=== PATIENT | female | born 1975 | race Caucasian/White ===

== ENCOUNTER → 2016-12-10 | Outpatient (CLI) | payer BC | END | disposition home or self-care (01) | LOC: C.PAPS 11:47 | PROVIDERS: ATTEND Obstetrics & Gynecology | DX: Z01.419 Encounter for gynecological examination (general) (routine) without abnormal findings (principal) ==

== ENCOUNTER 2017-08-24 06:01 | Emergency (ER) | payer BC ==
[~2017-08-24] VITALS: Ht 160 cm; Wt 69.2 kg
[2017-08-24 06:12] VITALS: TEMP 36.6; Ht 160 cm; Wt 69.2 kg
[2017-08-24] MEDS ORDERED: KETOROLAC TROMETHAMINE 30 MG/ML VIAL IV STA (06:56)
--- NOTE | 2017-08-24 07:00 | EMERGENCY ROOM VISIT NOTE ---
History Report prepared by Gloria: Jarett Chávez Under the Supervision of: Dr. Dejuan Stewart M.D. First contact with patient: 06:48 Chief Complaint: HEADACHE Stated Complaint: HEADACHE History of Present Illness The patient is a 42 year old female who presents to the Emergency Room with complaints of intermittent headaches beginning a few months ago. The patient states that she went to see a nurse practitioner at [facility] yesterday for her headaches. She notes that she was told that her blood pressure was high and to go to the emergency room if she developed any bad headaches. She reports that she woke up today with a bad headache, prompting her visit to the emergency department. The patient states that she has never had high blood pressure. She notes that she gets headaches that feel like "sinus headaches" several times a week. She reports that her headaches are located on the surface of the back and both sides of her head. The patient states that she typically feels better after taking Advil, but took Tylenol today with mild relief of her symptoms. She notes that she does not know what triggers her headaches. She denies any CP , current SOB, numbness, weakness, difficulty speaking, current vision changes, fever, chills, abdominal pain, and chance of . Although she does not complain of any current SOB or vision changes, she reports that she recently has been feeling SOB more easily than she used to and has had to squint in order to see clearly. She also complains of mild neck soreness. The patient states that she has recently stopped taking her control. She notes that she had a sinus infection a few months ago, and that she has a family history of diabetes on her father's side. She rates her pain as a 7/10. Source of History: patient Onset: a few months ago Position: head Symptom Intensity: 7/10 Quality: other ("sinus headache") Timing: intermittent Modifying Factors (Relieving): other (Advil) Associated Symptoms: No fevers, No chills, No chest pain, No SOB, No abdominal pain Note: She also complains of a high blood pressure. She also denies any numbness, weakness, difficulty speaking, and current vision changes. Review of Systems See HPI for pertinent positives & negatives. A total of 10 systems reviewed and were otherwise negative. Past Medical & Surgical Medical Problems: (1) No chronic diseases present Old medical records were reviewed. Nurse's notes were reviewed and I agree with. Family History FHx: diabetes mellitus FATHER Social History Smoking Status: Never Smoker Marital Status: Housing Status: lives with family Occupation Status: employed Current/Historical Medications No Active Prescriptions or Reported Meds Allergies Coded Allergies: No Known Allergies (Unverified , 08/24/17) Physical Exam Vital Signs Date Time Temp Pulse Resp B/P (MAP) Pulse Ox O2 Delivery O2 Flow Rate FiO2 08/24/17 08:49 69 20 160/102 95 Room Air 08/24/17 07:36 64 14 162/112 100 Room Air 08/24/17 06:12 36.6 74 18 173/133 95 Room Air Physical Exam General: Non-ill appearing 42 year old female, in no acute distress. HEENT: Normal cephalic atraumatic. Pupils are equal round and reactive to light. Extraocular movements are intact. Oropharynx is pink with moist mucous membranes. No swelling of the mouth lips or tongue. Neck: Supple with a midline trachea. No meningeal signs or stiffness, no JVD or bruits. No Stridor. Chest: Clear to auscultation bilaterally. No wheezes or rhonchi. No increased work of breathing. Heart: regular rate and rhythm. Abdomen: Soft nontender, nondistended without rebound guarding or rigidity. Extremities: No cyanosis clubbing or edema. No calf tenderness or assymetry Spine/Back. Non tender to palpation. No CVA tenderness Skin: Good turgor without rashes. Neurologic exam: Cranial nerves two through 12 are intact. Motor and sensation are intact and symmetrical throughout. Finger to nose intact, no tremor. Medical Decision & Procedures ER Provider Diagnostic Interpretation: Radiology results as stated below per my review and radiologist interpretation: CHEST ONE VIEW PORTABLE FINDINGS: The lungs are clear. Cardiac silhouette is normal in size. No pleural effusions. No pneumothorax. IMPRESSION: No acute process. Electronically signed by: Jovani Arreola M.D. 08/24/2017 7:[address] NONCONTRAST Findings: The paranasal sinuses and mastoid air cells are clear. The calvarium and skull base are intact. The ventricles and sulci are within normal limits. There is no mass, hematoma, midline shift, or acute infarct. Impression: No acute intracranial abnormality. Electronically signed by: Jovani Arreola M.D. 08/24/2017 8:20 AM Laboratory Results 08/24/17 07:15 Red Blood Count 4.91, Mean Corpuscular Volume 90.2, Mean Corpuscular Hemoglobin 31.2, Mean Corpuscular Hemoglobin Concent 34.5, Mean Platelet Volume 9.6, Neutrophils (%) (Auto) 58.1, Lymphocytes (%) (Auto) 32.8, Monocytes (%) (Auto) 7.0, Eosinophils (%) (Auto) 1.4, Basophils (%) (Auto) 0.5, Neutrophils # (Auto) 3.74, Lymphocytes # (Auto) 2.11, Monocytes # (Auto) 0.45, Eosinophils # (Auto) 0.09, Basophils # (Auto) 0.03 08/24/17 07:15 Test 08/24/17 07:15 08/24/17 07:18 White Blood Count 6.43 K/uL (4.8-10.8) Red Blood Count 4.91 M/uL (4.2-5.4) Hemoglobin 15.3 g/dL (12.0-16.0) Hematocrit 44.3 % (37-47) Mean Corpuscular Volume 90.2 fL (80-100) Mean Corpuscular Hemoglobin 31.2 pg (25-34) Mean Corpuscular Hemoglobin Concent 34.5 g/dl (32-36) Platelet Count 274 K/uL (130-400) Mean Platelet Volume 9.6 fL (7.4-10.4) Neutrophils (%) (Auto) 58.1 % Lymphocytes (%) (Auto) 32.8 % Monocytes (%) (Auto) 7.0 % Eosinophils (%) (Auto) 1.4 % Basophils (%) (Auto) 0.5 % Neutrophils # (Auto) 3.74 K/uL (1.4-6.5) Lymphocytes # (Auto) 2.11 K/uL (1.2-3.4) Monocytes # (Auto) 0.45 K/uL (0.11-0.59) Eosinophils # (Auto) 0.09 K/uL (0-0.5) Basophils # (Auto) 0.03 K/uL (0-0.2) RDW Standard Deviation 45.3 fL (36.4-46.3) RDW Coefficient of Variation 13.7 % (11.5-14.5) Immature Granulocyte % (Auto) 0.2 % Immature Granulocyte # (Auto) 0.01 K/uL (0.00-0.02) Anion Gap 8.0 mmol/L (3-11) Est Creatinine Clear Calc Drug Dose 83.1 ml/min Estimated GFR () 100.8 Estimated GFR (Non- 86.9 BUN/Creatinine Ratio 13.4 (10-20) Calcium Level 8.9 mg/dl (8.5-10.1) Total Bilirubin 0.4 mg/dl (0.2-1) Direct Bilirubin 0.1 mg/dl (0-0.2) Aspartate Amino Transf (AST/SGOT) 16 U/L (15-37) Alanine Aminotransferase (ALT/SGPT) 21 U/L (12-78) Alkaline Phosphatase 64 U/L (45-117) Total Protein 7.8 gm/dl (6.4-8.2) Albumin 3.7 gm/dl (3.4-5.0) Lipase 193 U/L (73-393) Thyroid Stimulating Hormone (TSH) 1.810 uIu/ml (0.300-4.500) Human Chorionic Gonadotropin, Qual NEG (NEG) Bedside Troponin I < 0.030 ng/ml (0-0.045) Laboratory studies as stated above per my review. Medications Administered Medications (Trade) Dose Ordered Sig/Nichelle Route Start Time Stop Time Status Last Admin Dose Admin Ketorolac Tromethamine (Toradol Inj) 30 mg NOW STAT IV 08/24/17 06:56 08/24/17 06:59 DC 08/24/17 07:34 30 MG ECG Indication: other (hypertension) Rate (beats per minute): 67 Rhythm: normal sinus Findings: no acute ischemic change, no ectopy Comparison ECG Date: no prior available ED Course 0655: Past medical records reviewed. The patient was evaluated in room B10, and a complete history and physical examination were performed. 0656: Toradol Inj 30mg IV 0745: I reevaluated and updated the patient. Upon reevaluation, the patient's blood pressure was 160/110. 0821: Upon reevaluation, the patient is stable and resting comfortably. I discussed the results and treatment plan with her. She verbalized agreement of the treatment plan. The patient was discharged home. She has an appointment for Saturday scheduled with her doctor regarding her hypertension. Medical Decision Differential diagnoses include: migraine, tension headache, intracranial process , hypertensive complication, cardiac disease, and electrolyte/metabolic abnormality. This patient comes in as described above. She was placed in room B 10. She is here for treatment and evaluation of headache similar on for several months. She seemed by her nurse practitioner on Saturday and was noted to have elevated blood pressures. The headaches come and go. It got worse today. She's had no fever or trauma. She has a normal neurologic exam. Her blood pressure in triage was significant elevated although this seems to be coming down. She was given Toradol 30 mg IV. CAT scan of her head. EKG and multiple blood testing was obtained. She was reassessed frequently. She hasn't no acute electrode or metabolic abdomen allergies CAT scan of her head was unremarkable. I did add a Lyme titer although she does not likely have a Lyme and recalls no tick bites. Her blood pressure is trending downward. It is possible that her high blood pressure could be causing headaches or it could be as a result of pain rather than a cause. She is follow-up with her doctor on Saturday for recheck of her blood pressure and they can start on a blood pressure medication then. She looks good. She should return if: worsening of symptoms, numbness or weakness, any new problems or concerns. She is happy with plan and discharged home. Medication Reconcilliation Current Medication List: was personally reviewed by me Blood Pressure Screening Patient's blood pressure: Elevated blood pressure Blood pressure disposition: Referred to PCP Impression Primary Impression: Headache Additional Impression: Hypertension Scribe Attestation The scribe's documentation has been prepared under my direction and personally reviewed by me in its entirety. I confirm that the note above accurately reflects all work, treatment, procedures, and medical decision making performed by me. Departure Information Dispostion Home / Self-Care Prescriptions No Active Prescriptions or Reported Meds Referrals Manish Nava M.D. (PCP) Forms HOME CARE DOCUMENTATION FORM, IMPORTANT VISIT INFORMATION Patient Instructions [facility] Additional Instructions Rest. Drink plenty of fluids. Follow-up with your doctor on Saturday, keep your appointment. You will likely need to be started on medication for high blood pressure May use ibuprofen or Tylenol if needed for pain over the weekend. Do not exceed the [id number] dosages. Return if: Worsening of symptoms, shortness of breath, fever or chills, any new problems or concerns Problem Qualifiers
[2017-08-24 07:28] LABS: BASO % 0.5 %; BASO ABS # 0.03 K/uL (0-0.2); COMPLETE YES; EOS % 1.4 %; HEMATOCRIT 44.3 % (37-47); IG% 0.2 %; LYMPH % 32.8 %; LYMPH ABS # 2.11 K/uL (1.2-3.4); MEAN CELL VOLUME 90.2 fL (80-100); MEAN CORPUSCULAR HEMOGLOBIN 31.2 pg (25-34); MEAN CORPUSCULAR HGB CONC 34.5 g/dl (32-36); MEAN PLATELET VOLUME 9.6 fL (7.4-10.4); NEUT % 58.1 %; PLATELET COUNT 274 K/uL (130-400); RED BLOOD COUNT 4.91 M/uL (4.2-5.4); WHITE BLOOD COUNT 6.43 K/uL (4.8-10.8)
[2017-08-24 07:44] LABS: BUN/CREATININE RATIO 13.4 (10-20); CALCIUM 8.9 mg/dl (8.5-10.1); CREATININE 0.84 mg/dl (0.60-1.20); POTASSIUM 3.5 mmol/L (3.5-5.1)
--- NOTE | 2017-08-24 07:47 | DIAGNOSTIC IMAGING REPORT ---
CHEST ONE VIEW PORTABLE HISTORY: Atypical CHEST PAIN COMPARISON: None. FINDINGS: The lungs are clear. Cardiac silhouette is normal in size. No pleural effusions. No pneumothorax. IMPRESSION: No acute process. Electronically signed by: Jovani Arreola M.D. 08/24/2017 7:46 AM Dictated Date/Time: 08/24/2017 7:45 AM
[2017-08-24 07:48] LABS: PREG INTERNAL NEGATIVE QC NEG CLEAR BACKGROUND; PREG INTERNAL POSITIVE QC POS CONTROL LINE
[2017-08-24 07:55] LABS: THYROID STIMULATING HORMONE 1.81 uIu/ml (0.300-4.500)
--- NOTE | 2017-08-24 08:21 | DIAGNOSTIC IMAGING REPORT ---
HEAD CT NONCONTRAST CT DOSE: 537.48 mGy.cm HISTORY: headache TECHNIQUE: Multiaxial CT images of the head were performed without the use of intravenous contrast. Automated exposure control was utilized for this study. A dose lowering technique was utilized adhering to the principles of ALARA. Comparison: None. Findings: The paranasal sinuses and mastoid air cells are clear. The calvarium and skull base are intact. The ventricles and sulci are within normal limits. There is no mass, hematoma, midline shift, or acute infarct. Impression: No acute intracranial abnormality. Electronically signed by: Jovani Arreola M.D. 08/24/2017 8:20 AM Dictated Date/Time: 08/24/2017 8:18 AM
[2017-08-24 08:49] VITALS: BP 160/102; PULSE 69; O2SAT 95
[2017-08-24 09:34] LABS: LYME DISEASE AB IGG NEG (NEG); LYME DISEASE AB IGM NEG (NEG)
[2017-08-24 11:04] LABS: URINE APPEARANCE CLEAR (CLEAR); URINE BILIRUBIN NEG (NEG); URINE COLOR YELLOW; URINE EPITHELIAL CELL AUTO >30 /lpf (0-5); URINE NITRITE NEG (NEG); URINE PH 6.5 (4.5-7.5); URINE SPECIFIC GRAVITY 1.016 (1.000-1.030); UROBILINOGEN NEG (NEG)
[2017-08-24 11:05] LABS: MANUAL MICROSCOPIC REQUIRED? NO; REVIEW REQ? NO
== END 2017-08-24 09:04 | disposition home or self-care (01) ==
LOC: C.EDB 06:02
DX: R51 Headache (principal); I10 Essential (primary) hypertension; Z83.3 Family history of diabetes mellitus